=== PATIENT | female | born 1995 | race Caucasian/White ===

== ENCOUNTER → 2018-03-15 | Outpatient (CLI) | payer OTHER ==
--- NOTE | 2018-03-15 11:29 | RAD ---
CT abdomen pelvis without intravenous contrast History: Left flank pain for a few days. Comparison: None. Technique: CT of the abdomen and pelvis was performed without intravenous or oral contrast. Exposure: One or more of the following individualized dose reduction techniques were utilized for this examination: 1. Automated exposure control 2. Adjustment of the mA and/or kV according to patient size 3. Use of iterative reconstruction technique Findings: Evaluation of solid organs is limited by lack of intravenous contrast. Evaluation of enteric structures may be limited by lack of oral contrast. Liver, spleen, pancreas, gallbladder, and bilateral adrenal glands are unremarkable. Bilateral kidneys and ureters are free stone or obstruction. Appendix is without evidence of inflammation. Urinary bladder is unremarkable. Uterus and adnexa have unremarkable CT appearance. No free air or significant free fluid is seen in the abdomen or pelvis. Impression: No evidence of urinary stone. No acute abnormality identified in the abdomen or pelvis. Electronically signed by: Jayden Sharma MD (03/15/2018 11:26 AM) [id number]
== END | disposition home or self-care (01) ==
LOC: PMG 10:10
PROVIDERS: ATTEND Physician Assistant
DX: R10.32 Left lower quadrant pain (principal)
CPT/HCPCS: 74176

== ENCOUNTER 2021-03-29 20:52 | Emergency (ER) | payer MEDICAID, OTHER ==
[~2021-03-29] VITALS: Ht 165.1 cm; Wt 88.0 kg
[2021-03-29] MEDS ORDERED: SULF1TAB24 PO (22:21)
[2021-03-29 22:22] VITALS: BP 134/87
--- NOTE | 2021-03-29 22:22 | PHYS DOC ---
General Adult EDM: Chief Complaint: SKIN PROBLEM HPI: HPI: 25-year-old female presents with cellulitis of the right lateral leg. The patient had a video call with primary care this morning and they placed her on Keflex. She is only had 2 doses. Patient is concerned because her area of redness has expanded to twice the size. It is uncomfortable but tolerable. She wants to make sure that she does not need additional or different antibiotics. Patient denies fever or chills. Review of Systems: Review of Systems: Constitutional: Denies fever or chills Eyes: Denies change in visual acuity HENT: Denies nasal congestion or sore throat Respiratory: Denies cough or shortness of breath Cardiovascular: Denies chest pain or edema GI: Denies abdominal pain, nausea, vomiting, bloody stools or diarrhea : Denies dysuria Musculoskeletal: Denies back pain or joint pain Integument: Cellulitis right lateral leg Neurologic: Denies headache, focal weakness or sensory changes Endocrine: Denies polyuria or polydipsia Lymphatic: Denies swollen glands Psychiatric: Denies depression or anxiety Allergies: Allergies: Allergies Coded Allergies Type Severity Reaction Last Updated Verified No Known Drug Allergies 03/29/21 No Physical Exam: PE: Constitutional: Well developed, well nourished, no acute distress, non-toxic appearance. [] HENT: Normocephalic, atraumatic, bilateral external ears normal, oropharynx moist, no oral exudates, nose normal. [] Eyes: PERRLA, EOMI, conjunctiva normal, no discharge. [] Neck: Normal range of motion, no tenderness, supple, no stridor. [] Cardiovascular:Heart rate regular rhythm, no murmur [] Lungs & Thorax: Bilateral breath sounds clear to auscultation [] Abdomen: Bowel sounds normal, soft, no tenderness, no masses, no pulsatile masses. [] Skin: 6 cm erythematous, hot area of skin consistent with cellulitis. No palpable abscess. [] Back: No tenderness, no CVA tenderness. [] Extremities: No tenderness, no cyanosis, no clubbing, ROM intact, no edema. [] Neurologic: Alert and oriented X 3, normal motor function, normal sensory function, no focal deficits noted. [] Psychologic: Affect normal, judgement normal, mood normal. [] EKG: EKG: [] Radiology/Procedures: Radiology/Procedures: [] Heart Score: C/O Chest Pain: N/A Risk Factors: Risk Factors: DM, Current or recent (<one month) smoker, HTN, HLP, family history of CAD, obesity. Risk Scores: Score 0 - 3: 2.5% MACE over next 6 weeks - Discharge Home Score 4 - 6: 20.3% MACE over next 6 weeks - Admit for Clinical Observation Score 7 - 10: 72.7% MACE over next 6 weeks - Early Invasive Strategies Course & Med Decision Making: Course & Med Decision Making Pertinent Labs and Imaging studies reviewed. (See chart for details) The patient's Keflex may work, but given the rapid spread of the cellulitis, I will add Bactrim DS for 7 days. We will give her 2 pills in the ED. She is stable for discharge at this time. [] Brian Disclaimer: [place] Disclaimer: This electronic medical record was generated, in whole or in part, using a voice recognition dictation system. Departure Departure: Impression: Primary Impression: Cellulitis of right lower leg Disposition: HOME / SELF CARE / HOMELESS Condition: STABLE Referrals: RICKEY LOPEZ (PCP) Patient Instructions: Cellulitis, [id number] Scripts Sulfamethoxazole/Trimethoprim (BACTRIM DS TABLET) 1 Each Tablet 1 TAB PO BID for cellulitis for 7 Days, #14 TAB 0 Refills Prov: RISHI MATAMOROS DO 03/29/21 RISHI MATAMOROS DO Mar 29, 2021 22:22
[2021-03-29] MEDS ORDERED: SMZ/TMP 800/160MG TABLET. PO ONE ×2 (22:27→23:00)
== END 2021-03-29 22:31 | disposition home or self-care (01) ==
LOC: ER 20:52
DX: L03.115 Cellulitis of right lower limb (principal)
CPT/HCPCS: 99283

== ENCOUNTER 2021-03-31 18:43 | Emergency (ER) | payer MEDICAID ==
[~2021-03-31] VITALS: Ht 165.1 cm; Wt 88.0 kg
[~2021-03-31 18:43] MED LIST: SULF1TAB24 PO
[2021-03-31 19:06] VITALS: BP 131/90
[2021-03-31] MEDS ORDERED: CLIN300C9 PO ×2 (20:25→20:48)
--- NOTE | 2021-03-31 20:49 | PHYS DOC ---
Past History Past Surgical History: No Surgical History (ZACH BOSTON APRN) Alcohol Use: None (ZACH BOSTON APRN) General Adult EDM: Chief Complaint: SKIN PROBLEM HPI: HPI: Patient is a 25-year-old female who presents with bite to right calf. Patient is unsure of what may have bit her. Patient was seen here Wednesday morning given dose of antibiotics. Patient came back Wednesday night and given a second antibiotic. Patient's been taking cephalexin and Bactrim. Patient denies fever. Patient does report some pain to the area. Patient states "it is gotten worse since Wednesday". Denies nausea/vomiting/diarrhea. (ZACH BOSTON APRN) Review of Systems: Review of Systems: Constitutional: Denies fever or chills Eyes: Denies change in visual acuity HENT: Denies nasal congestion or sore throat Respiratory: Denies cough or shortness of breath Cardiovascular: Denies chest pain or edema GI: Denies abdominal pain, nausea, vomiting, bloody stools or diarrhea : Denies dysuria Musculoskeletal: Denies back pain or joint pain Integument: Red, indurated rash to right calf Neurologic: Denies headache, focal weakness or sensory changes Endocrine: Denies polyuria or polydipsia Lymphatic: Denies swollen glands Psychiatric: Denies depression or anxiety (ZACH BOSTON APRN) Allergies: Allergies: Allergies Coded Allergies Type Severity Reaction Last Updated Verified No Known Drug Allergies 03/29/21 No (ZACH BOSTON APRN) Physical Exam: PE: Constitutional: Well developed, well nourished, no acute distress, non-toxic appearance. [] HENT: Normocephalic, atraumatic, bilateral external ears normal, oropharynx moist, no oral exudates, nose normal. [] Eyes: PERRLA, EOMI, conjunctiva normal, no discharge. [] Neck: Normal range of motion, no tenderness, supple, no stridor. [] Cardiovascular:Heart rate regular rhythm, no murmur [] Lungs & Thorax: Bilateral breath sounds clear to auscultation [] Abdomen: Bowel sounds normal, soft, no tenderness, no masses, no pulsatile masses. [] Skin: Red, tender, warm wound to right calf Back: No tenderness, no CVA tenderness. [] Extremities: Right calf tenderness, no cyanosis, ROM intact, swelling Neurologic: Alert and oriented X 3, normal motor function, normal sensory function, no focal deficits noted. [] Psychologic: Affect normal, judgement normal, mood normal. [] (ZACH BOSTON APRN) Current Patient Data: Vital Signs: Vital Signs Date Time Temp Pulse Resp B/P (MAP) Pulse Ox O2 Delivery O2 Flow Rate FiO2 03/31/21 19:06 98.0 88 18 131/90 99 Room Air (ZACH BOSTON APRN) EKG: EKG: [] (ZACH BOSTON APRN) Radiology/Procedures: Radiology/Procedures: [] (ZACH BOSTON APRN) Heart Score: C/O Chest Pain: No Risk Factors: Risk Factors: DM, Current or recent (<one month) smoker, HTN, HLP, family history of CAD, obesity. Risk Scores: Score 0 - 3: 2.5% MACE over next 6 weeks - Discharge Home Score 4 - 6: 20.3% MACE over next 6 weeks - Admit for Clinical Observation Score 7 - 10: 72.7% MACE over next 6 weeks - Early Invasive Strategies (ZACH BOSTON APRN) Course & Med Decision Making: Course & Med Decision Making Pertinent Labs and Imaging studies reviewed. (See chart for details) [] 25-year-old female presents with a bite to her right calf. Patient is unsure of what she was bitten by. Patient started antibiotics on Wednesday. Patient was taking Keflex and also Bactrim. Patient reports he has gotten more red since Wednesday. Patient started on clindamycin and told to stop the other 2 antibiotics. Patient given 1 dose in the ER. Patient also given 1, 5/325 hydrocodone. 600 mg of ibuprofen. I had RN draw around the wound to document size. Patient given strict return precautions. Discussed pain control. Ibuprofen and Tylenol at home. Patient states that she understands. Patient is hemodynamically stable. (ZACH BOSTON APRN) Course & Med Decision Making Do not see or evaluate patient. Agree with FIELD ADMINISTRATOR's work-up and disposition per note (GUIDO EASTON MD) Dragon Disclaimer: Dragon Disclaimer: This electronic medical record was generated, in whole or in part, using a voice recognition dictation system. (ZACH BOSTON APRN) Departure Departure: Impression: Primary Impression: Spider bite wound Qualified Codes: T63.301A - Toxic effect of unspecified spider venom, accidental (unintentional), initial encounter Disposition: HOME / SELF CARE / HOMELESS Condition: STABLE Referrals: RICKEY LOPEZ (PCP) Patient Instructions: Spider Bite Additional Instructions: You are seen the emergency room for insect bite to your right calf. I am starting you on a different antibiotic. You were given 1 dose in the ER. Take ibuprofen and Tylenol for pain. Please return to the emergency room with worsening symptoms or concerns. EMERGENCY DEPARTMENT GENERAL DISCHARGE INSTRUCTIONS Thank you for coming to [facility] (ED) today and trusting us with you care. We trust that you had a positivie experience in our Emergency Department. If you wish to speak to the department management, you may call the director at [phone]. YOUR FOLLOW UP INSTRUCTIONS ARE FOLLOWS: 1. Do you have a private Doctor? If you do not have a private doctor, please ask for a resource list of physicians or clinics that may be able to assist you with follow up care. 2. The Emergency Physician has interpreted your x-rays. The X-Ray specialist will also review them. If there is a change in the findings, you will be notified in 48 hours when at all possible. 3. A lab test or culture has been done, your results will be reviewed and you will be notified if you need a change in treatment. ADDITIONAL INSTRUCTIONS AND INFORMATION: 1. Your care today has been supervised by a physician who is specially trained in emergency care. Many problems require more than one evaluation for a complete diagnosis and treatment. We recommend that you schedule your follow up appointment as recommended to ensure complete treatment of you illness or injury. If you are unable to obtain follow up care and continue to have a problem, or if your condition worsens, we recommend that you return to the ED. 2. We are not able to safely determine your condition over the phone nor are we able to give sound medical advice over the phone. For these safety reasons, if you call for medical advice we will ask you to come to the ED for further evaluation. 3. If you have any questions regarding these discharge instructions please call the ED at [phone]. SAFETY INFORMATION: In the interest of safety, wellness, and injury prevention; we encourage you to wear your sealbelt, if you smoke; quite smoking, and we encourage family to use a protective helmet for bicycling and other sporting events that present an increased risk for head injury. IF YOUR SYMPTOMS WORSEN OR NEW SYMPTOMS DEVELOP, OR YOU HAVE CONCERNS ABOUT YOUR CONDITION; OR IF YOUR CONDITION WORSENS WHILE YOU ARE WAITING FOR YOUR FOLLOW UP APPOINTMENT; EITHER CONTACT YOUR PRIMARY CARE DOCTOR, THE PHYSICIAN WHOSE NAME AND NUMBER YOU WERE GIVEN, OR RETURN TO THE ED IMMEDIATELY. Scripts Clindamycin Hcl (CLINDAMYCIN HCL) 300 Mg Capsule 300 MG PO QID for spider bite for 10 Days, #20 CAP Prov: ZACH BOSTON APRN 03/31/21 ZACH BOSTON APRN Mar 31, 2021 20:49 GUIDO EASTON MD Apr 01, 2021 01:15
[2021-03-31] MEDS ORDERED: HYDROcodone/APAP 5/325MG 1 TAB TABLET PO ONE (21:30)
[2021-03-31] MEDS ORDERED: CLINDAMYCIN HCL 150 MG CAPSULE PO ONE (21:30)
[2021-03-31] MEDS ORDERED: IBUPROFEN 600 MG TABLET. PO ONE (21:30)
== END 2021-03-31 21:09 | disposition home or self-care (01) ==
LOC: ER 18:43
DX: T63.301A Toxic effect of unspecified spider venom, accidental (unintentional), initial encounter (principal); Y92.89 Other specified places as the place of occurrence of the external cause
CPT/HCPCS: 99284